=== PATIENT | male | born 1970 | race Caucasian/White ===

== ENCOUNTER 2017-04-07 10:31 | Emergency (ER) | payer BC ==
[2017-04-07 11:02] VITALS: BP 119/73
[2017-04-07] MEDS ORDERED: predniSONE TAB* 20 MG PO ONE (11:39)
--- NOTE | 2017-04-07 11:46 | UC ---
Lower Extremity/Ankle HPI - HPI Summary HPI Summary: 46 YO MALE PRESENTS WITH A 3 DAY HX OF REDNESS AND SWELLING OF THE DORSUM OF HIS RIGHT FOOT X 3 DAYS HE HAS BEEN TALKING ALEVE BUT HAS HAD TO STOP IT DUE TO DYSPEPSIA HAS HAD GOUT IN THE PAST AND IT HAS RESPONDED WELL TO STEROIDS - History of Current Complaint Chief Complaint: UCLowerExtremity Stated Complaint: FOOT PAIN Time Seen by Provider: 04/07/17 11:32 Hx Obtained From: Patient Onset/Duration: Gradual Onset, Lasting Days Severity Initially: Mild Severity Currently: Moderate Pain Intensity: 7 Pain Scale Used: 0-10 Numeric Aggravating Factor(s): Standing, Ambulation Alleviating Factor(s): Rest, Elevation Able to Bear Weight: Yes - Allergies/Home Medications Allergies/Adverse Reactions: Allergies Allergy/AdvReac Type Severity Reaction Status Date / Time No Known Allergies Allergy Verified 04/07/17 10:56 Home Medications: Home Medications Cephalexin CAP* [Keflex 500 CAP*] 500 mg PO QID 04/07/17 [History Confirmed ] PMH/Surg Hx/FS Hx/Imm Hx Previously Healthy: Yes - GOUT - Surgical History Surgical History: None - Family History Known Family History: Positive: Other - NO FHx OF GOUT Negative: Cardiac Disease, Diabetes - Social History Alcohol Use: None Substance Use Type: None Smoking Status (MU): Never Smoked Tobacco Review of Systems Constitutional: Negative Skin: Negative Eyes: Negative ENT: Negative Respiratory: Negative Cardiovascular: Negative Gastrointestinal: Negative Genitourinary: Negative Motor: Negative Neurovascular: Negative Musculoskeletal: Arthralgia Neurological: Negative Psychological: Negative Is Patient Immunocompromised?: No All Other Systems Reviewed And Are Negative: Yes Physical Exam Triage Information Reviewed: Yes Appearance: Well-Appearing, No Pain Distress, Well-Nourished Vital Signs: Initial Vital Signs Temp 98.5 F 04/07/17 10:55 Pulse 78 04/07/17 10:55 Resp 18 04/07/17 10:55 BP 119/73 04/07/17 10:55 Pulse Ox 99 04/07/17 10:55 Vital Signs Reviewed: Yes Eyes: Positive: Conjunctiva Clear ENT: Positive: Hearing grossly normal. Negative: Nasal congestion, Nasal drainage, Trismus, Muffled voice, Hoarse voice Neck: Positive: Supple Respiratory: Positive: Lungs clear, Normal breath sounds, No respiratory distress Cardiovascular: Positive: RRR, No Murmur Musculoskeletal: Positive: Other: - SEE IMAGE Skin Exam: Other - SEE IMAGE Skin: Negative: rashes, breakdown, significant lesion(s) Lower Extremity Course/Dx - Differential Dx/Diagnosis Provider Diagnoses: ACUTE GOUT Discharge - Discharge Plan Condition: Stable Disposition: HOME Prescriptions: Prednisone 60 mg PO DAILY #6 tab Patient Education Materials: Low Purine Diet (ED), Gout (ED) Referrals: No Primary Care Phys,NOPCP [Primary Care Provider] - Additional Instructions: SEE YOUR MD IN 3 DAYS IF NOT BETTER Images Feet (Multiple View): 1 - RIGHT MID FOOT-ERTHYMA AND SWELLING
== END 2017-04-07 11:53 | disposition home or self-care (01) ==
LOC: UCEAST 10:31
DX: M10.9 Gout, unspecified (principal)
CPT/HCPCS: 99202; G0463; J7512